=== PATIENT | male | born 1975 | race Native Hawaiian/Other Pacific Islander ===

== ENCOUNTER 2019-05-14 17:34 | Emergency (ER) | payer OTHER ==
[~2019-05-14] VITALS: Ht 185.4 cm; Wt 88.5 kg
[2019-05-14] MEDS ORDERED: OXYCODONE30 MG PO (18:05)
[2019-05-14 19:10] VITALS: BP 110/73; TEMP 98.1
== END 2019-05-14 19:10 | disposition home or self-care (01) ==
LOC: ED 17:34
DX: K04.7 Periapical abscess without sinus (principal); K08.89 Other specified disorders of teeth and supporting structures; Z98.818 Other dental procedure status
CPT/HCPCS: 96372; 99283; J1885